=== PATIENT | male | born 1960 | race Caucasian/White ===

== ENCOUNTER 2017-08-16 02:37 | Emergency (ER) | payer BC ==
[2017-08-16 02:56] LABS: ADD MAN DIFF? NO
[2017-08-16 02:58] LABS: BASO # 0.1 x10^3/uL (0.0-0.2); BASO % 1 % (0-3); EOS # 0.2 x10^3/uL (0.0-0.7); EOS % 3 % (0-3); HEMATOCRIT 46.7 % (39.0-53.0); HEMOGLOBIN 15.5 g/dL (13.0-17.5); LYMPH # 2.4 x10^3/uL (1.0-4.8); LYMPH % 36 % (24-48); MEAN CORPUSCULAR HEMOGLOBIN 29 pg (25-35); MEAN CORPUSCULAR HGB CONC 33 g/dL (31-37); MEAN CORPUSCULAR VOLUME 87 fL (79-100); MONO # 0.6 x10^3/uL (0.0-1.1); MONO % 9 % (0-9); NEUT # 3.4 x10^3uL (1.8-7.7); NEUT % 51 % (31-73); PLATELET COUNT 210 x10^3/uL (140-400); RED BLOOD COUNT 5.37 x10^6/uL (4.30-5.70); RED CELL DISTRIBUTION WIDTH 14.8 % (11.5-14.5); WHITE BLOOD COUNT 6.8 x10^3/uL (4.0-11.0)
[2017-08-16] MEDS: IPRATRPIUM/ALBUTEROL 0.5/2.5MG 3 ML NEBU. NEB (03:08)
[2017-08-16 03:13] LABS: ANION GAP 13 (6-14); BLOOD UREA NITROGEN 23 mg/dL (8-26); CARBON DIOXIDE 24 mmol/L (21-32); CHLORIDE 104 mmol/L (98-107); GLUCOSE 196 mg/dL (70-99); POTASSIUM 3.7 mmol/L (3.5-5.1); SODIUM 141 mmol/L (136-145)
[2017-08-16] MEDS ORDERED: DEXAMETHASONE SOD PHOS 20 MG/5 ML VIAL. (03:14)
[2017-08-16] MEDS: diphenhydrAMINE 50 MG/ML VIAL IVP (03:17)
[2017-08-16] MEDS: FAMOTIDINE 20 MG/2 ML VIAL IVP (03:17)
[2017-08-16 03:18] LABS: TROPONINI < 0.017 ng/mL (0.000-0.055)
[2017-08-16] MEDS: DEXAMETHASONE SOD PHOS 4 MG/ML VIAL IV (03:29)
== END 2017-08-16 04:53 | disposition home or self-care (01) ==
LOC: ER 02:37
DX: J40 Bronchitis, not specified as acute or chronic (principal)
CPT/HCPCS: 36415; 80048; 84484; 85025; 93005; 94640; 96374; 96375; 99285-25; J1100; J1200; J7620; S0028